=== PATIENT | male | born 1960 | race Two or more races ===

== ENCOUNTER 2024-12-20 09:37 | Outpatient (REF) | payer MEDICAID, SELFPAY ==
--- NOTE | ~2024-12-20 | XR_ITS ---
EXAMINATION: X-ray lumbar spine. CLINICAL INFORMATION: Chronic right-sided low back pain. TECHNIQUE: AP oblique and lateral views.. COMPARISON: None FINDINGS: Castellvi type III sacralization. Rudimentary ribs at T12. Multilevel endplate sclerosis and small marginal osteophyte formation. No acute cortical disruption or gross malalignment. No lytic or blastic lesions. Spina bifida occulta S1, congenital. Vascular clips right upper quadrant abdomen likely related to cholecystectomy. XR/XR lumbar spine 4V min IMPRESSION: Sacralized vertebra. Mild multilevel spondylosis without acute fracture. Electronically signed by: El Radford MD 12/20/2024 10:28 AM EDT
--- OUTSIDE RECORDS SUMMARY | 2024-12-20 10:19 | XMS_ITS | Encounter Summary ---
Author Organization [employer] [facility] Address [address] [facility] [address] [place] [address] Care Team Providers Care Change Lead Name Role Phone Unavailable Primary Care Provider Unavailabl e Encounter Details Date Type Department Care Team (Latest Contact Info) Description 08/13/2019 Abstract [facility] CONVERSIONS Dental, Provider, DDS Social History Tobacco Use Types Packs/Day Years Used Date Smoking Tobacco: Never Assessed Sex and Gender Information Value Date Recorded Sex Assigned at Male 03/29/2022 10:30 AM EDT Legal Sex Male 10:30 AM EDT Gender Identity Male 03/29/2022 10:30 AM EDT Sexual Orientation Choose not to disclose 2021 10:30 AM EDT documented as of this encounter Plan of Treatment Upcoming Encounters Date Type Department Care Team (Late st Contact Info) Description 01/18/2025 9:30 AM EDT Office Visit [facility] MEDICINE [address] [place], [place] [phone] Justine Royal DO [address] [place] [address] documented as of this encounter Visit Diagnoses Not on filedocumented in this encounter
== END 2024-12-20 09:38 | disposition home or self-care (01) ==
LOC: HO.HHCX 09:37
PROVIDERS: Visit Provider Emergency Medicine
DX: M54.41 Lumbago with sciatica, right side (principal); G89.29 Other chronic pain
CPT/HCPCS: 72110

== ENCOUNTER → 2024-12-20 09:58 | Outpatient (BNV) | payer MEDICAID, SELFPAY | PROVIDERS: Visit Provider Radiology Diagnostic Radiology | DX: M47.896 Other spondylosis, lumbar region (principal) | CPT/HCPCS: 72110 ==

== ENCOUNTER 2025-01-08 10:16 | Outpatient (AMB) | payer MEDICAID, SELFPAY ==
--- NOTE | 2025-01-08 10:23 | A.OFFVIS_ITS ---
Intake Visit Reasons: CHRONIC RT SIDED LOW BACK PAIN Supervisor Alteration Workroom Required: Yes Supervisor Alteration Workroom Language: Snap Shearer Services: Supervisor Alteration Workroom Present Supervisor Alteration Workroom Name: Josh #[id number] Information Interpreted: non-clinical & clinical Accompanied by: Spouse Allergies No Known Allergies Allergy (Verified 01/08/25 10:36) Medication List - Last Reconciled 01/08/25 by DINORAH Welsh acetaminophen (Tylenol) 650 mg PO Q6H PRN lidocaine 5% 1 patch topical DAILY tizanidine 2 mg PO Q6H PRN HPI Comments Details: The patient is a 64-year-old male presenting with chronic lower back pain with right-sided radiculopathy. The pain began approximately two years ago without any specific inciting event such as trauma or heavy lifting. The pain is more severe at night and with heavy lifting and bending, rated at 8 out of 10, and has been increasing over the past couple of weeks. 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 He manages the pain with Tylenol, tizanidine and lidocaine patches, but reports that the pain persists, especially at night. An x-ray revealed mild multilevel arthritis and small bone spur formation, with no fractures or dislocations. The patient also has congenital spina bifida occulta at S1 and sacralization of L5-S1, which could contribute to the chronic pain. - Onset: Approximately two years ago - Quality: Chronic, severe at night and with activities; aching, throbbing, stabbing, sharp, shooting, radiating - Severity: Rated 8/10 - Location: Right lower back with right-sided radiculopathy - Exacerbating factors: Sleep, changing positions, lifting heavy objects, bending forward>backwards - Relieving factors: Tylenol, tizanidine and lidocaine patches provide some relief - Affect: Pain impacts sleep, causing increased discomfort at night - Analgesia: Currently using Tylenol, tizanidine and lidocaine patches - Adverse Effects: No adverse effects from current pain management reported - Activities of Daily Living: Pain has led to being bedridden, impacting daily activities, work and sleep - Aberrant Drug Related Behaviors: None reported Oswestry Low Back Pain Disability=22 PFSH Medical History (Updated 01/08/25 @ 10:54 by DINORAH Welsh) Chronic low back pain with right-sided sciatica Spina bifida occulta Surgical History (Updated 01/08/25 @ 10:40 by Stefany Morris) Hx of cholecystectomy Social History (Updated 01/08/25 @ 10:39 by Stefany Morris) Alcohol intake: current Alcohol intake frequency: holidays/special occasions only Patient Tobacco Use Status: Never used Tobacco Review of Systems Const Details: - Musculoskeletal: Reports chronic lower back pain with right-sided radiculopathy - Neurological: Denies numbness or tingling, bladder or bowel dysfunction, or saddle anesthesia - General: Denies fever, chills, unintentional weight loss, or night sweats All systems reviewed & are unremarkable except as noted in HPI and below Physical Exam General: Appears afebrile. Alert and oriented. Mood and affect appropriate. Follows and participates in conversation appropriately. Respiratory effort is unlabored. No cough. Able to transition from sit to stand unassisted. Ambulates with bilaterally normal heel strike and toe off. General: Yes no CVA tenderness Back/Spine/Pelvis Other: Limited lumbar ROM due to pain. Lumbar extension and flexion forward reproduces moderate pain. Demonstrates 5/5 strength of quadriceps bilaterally as well as flexion/dorsiflexion of bilateral feet against resistance. 2+ pedal pulses bilaterally. Seated and supine straight leg rise with dorsiflexion negative bilaterally. +2 patellar and achilles reflexes bilaterally. Facet loading test positive bilaterally. Indy sign, Carlos?s, Gaenslen, Pelvic compression and Stinchfield tests are positive bilaterally, right>left. No groin pain with I/E hip rotations. Valsalva maneuver negative. Back: no CVA tenderness Cervical Spine: cervical ROM normal, cervical muscular tenderness and No Cervical spine tenderness Thoracic/Lumbar Spine: thoracic and lumbar spine normal to inspection, No Thoracic/lumbar spine scar(s), Lasegue's sign negative, straight leg raise negative bilaterally, pain with thoraco-lumbar ROM, paraspinal muscle tenderness, thoraco-lumbar ROM limited, No thoracic spinal tenderness and lumbar spinal tenderness (L4-S1) Pelvis: buttock tenderness on the right Sacroiliac joints: bilaterally (R>L) tender to palpation Extrem General: Yes capillary refill normal, Yes no clubbing, cyanosis or edema and Yes no calf tenderness Results Reviewed Results Reviewed: XR lumbar spine 4V min 12/20/24 CLINICAL INFORMATION: Chronic right-sided low back pain. TECHNIQUE: AP oblique and lateral views.. COMPARISON: None FINDINGS: Castellvi type III sacralization. Rudimentary ribs at T12. Multilevel endplate sclerosis and small marginal osteophyte formation. No acute cortical disruption or gross malalignment. No lytic or blastic lesions. Spina bifida occulta S1, congenital. Vascular clips right upper quadrant abdomen likely related to cholecystectomy. IMPRESSION: Sacralized vertebra. Mild multilevel spondylosis without acute fracture. Assessment & Plan Assessment & Plan (1) Chronic low back pain with right-sided sciatica: Code(s): M54.41 - Lumbago with sciatica, right side; G89.29 - Other chronic pain Category: Medical (2) Lumbar spondylosis: Code(s): M47.816 - Spondylosis without myelopathy or radiculopathy, lumbar region Category: Medical (3) Sacralization of lumbar vertebra: Code(s): Q76.49 - Other congenital malformations of spine, not associated with scoliosis Category: Medical (4) Lumbar degenerative disc disease: Code(s): M51.369 - Other intervertebral disc degeneration, lumbar region without mention of lumbar back pain or lower extremity pain Category: Medical (5) Chronic low back pain with right-sided sciatica: Code(s): M54.41 - Lumbago with sciatica, right side; G89.29 - Other chronic pain Category: Medical (6) Sacroiliac joint pain: Code(s): M53.3 - Sacrococcygeal disorders, not elsewhere classified Category: Medical Plan - Initiate physical therapy at [facility] in [place] close to his home proximity to address chronic lower back pain - If no improvement with physical therapy, consider MRI to further evaluate the condition - Continue current pain management with Tylenol and lidocaine patches - Consider interventional procedures such as diagnostic vs therapeutic injections, Sprint PNS trail or radiofrequency ablation if physical therapy is ineffective. All questions and concerns have been answered and patient agreed with the plan. Follow up after PT and sooner as needed. Patient was informed and verbally consented to the use of an ambient scribe for clinic note documentation during this visit. Orders: Orders PT Evaluation and Treatment Today G89.29 - Other chronic pain, M47.816 - Spondylosis without myelopathy or radiculopathy, lumbar region, M51.369 - Other intervertebral disc degeneration, lumbar region without mention of lumbar back pain or lower extremity pain, M53.3 - Sacrococcygeal disorders, not elsewhere classified, M54.41 - Lumbago with sciatica, right side, Q76.0 - Spina bifida occulta, Q76.49 - Other congenital malformations of spine, not associated with scoliosis Coding Level of Care Code New Pt Level 4 (42819) Diagnoses Chronic low back pain with right-sided sciatica M54.41; G89.29 Lumbar spondylosis M47.816 Sacralization of lumbar vertebra Q76.49 Lumbar degenerative disc disease M51.369 Sacroiliac joint pain M53.3
--- OUTSIDE RECORDS SUMMARY | 2025-01-08 11:17 | XMS_ITS | Encounter Summary ---
Author Organization [employer] [facility] Address [address] [facility] [address] [place] [address] Care Team Providers Care Manager Msw Name Role Phone Unavailable Primary Care Provider Unavailabl e Encounter Details Date Type Department Care Team (Latest Contact Info) Description 08/13/2019 Abstract [facility] CONVERSIONS Dental, Provider, DDS Social History [...] Description 01/18/2025 9:30 AM EDT Office Visit [facility] MEDICINE [address] [place], [place] [phone] Justine Royal DO [address] [place] [address] documented as of this encounter Visit Diagnoses Not on filedocumented in this encounter
== END 2025-01-08 11:05 | disposition home or self-care (01) ==
LOC: HO.PMC 10:16
PROVIDERS: Visit Provider Nurse Practitioner Family
DX: M54.41 Lumbago with sciatica, right side (principal); G89.29 Other chronic pain; M47.816 Spondylosis without myelopathy or radiculopathy, lumbar region; Q76.49 Other congenital malformations of spine, not associated with scoliosis; M51.369 Other intervertebral disc degeneration, lumbar region without mention of lumbar back pain or lower extremity pain; M53.3 Sacrococcygeal disorders, not elsewhere classified
CPT/HCPCS: 99204

== ENCOUNTER → 2025-01-08 10:16 | Outpatient (BNVA) | payer MEDICAID, SELFPAY | PROVIDERS: Visit Provider Nurse Practitioner Family | DX: M54.41 Lumbago with sciatica, right side (principal); M47.816 Spondylosis without myelopathy or radiculopathy, lumbar region; Q76.49 Other congenital malformations of spine, not associated with scoliosis; M51.369 Other intervertebral disc degeneration, lumbar region without mention of lumbar back pain or lower extremity pain; M53.3 Sacrococcygeal disorders, not elsewhere classified | CPT/HCPCS: 99212 ==

== ENCOUNTER 2025-01-18 10:09 | Outpatient (REF) | payer MEDICAID, SELFPAY ==
--- OUTSIDE RECORDS SUMMARY | 2025-01-18 10:15 | XMS_ITS | Encounter Summary ---
Author Organization [facility] [employer] [facility] Address [address] [facility] 7t [place] [address] Care Team Providers Care 1St Pressman Name Role Phone Unavailable Primary Care Provider Unavailabl e Encounter Details Date Type Department Care Team (Latest Contact Info) Description 12/04/2018 Abstract [facility] CONVERSIONS Dental, Provider, DDS Social History Tobacco [...] Care Team (Late st Contact Info) Description 02/11/2025 10:30 AM EDT Clinical Support [facility] MEDICINE [address] [place] [phone] documented as of this encounter Visit Diagnoses Not on filedocumented in this encounter
[2025-01-18 12:04] LABS: Hematocrit 47.5 % (42.0-52.0); Hemoglobin 16.2 g/dl (14.0-18.0); Mean Corpuscular HGB Conc 34.1 g/dl (31.0-36.0); Mean Corpuscular Hemoglobin 30.9 pg (27.0-33.0); Mean Corpuscular Volume 90.6 fL (80.0-98.0); NRBC Abs Auto 0.000 X10*3/uL (0.0-0.012); NRBC Pct Auto 0.0 /100WBC (0.0-0.2); Platelet Count 232 X10*3/uL (160-400); Red Blood Count 5.24 X10*6/uL (4.60-5.80); White Blood Count 5.9 X10*3/uL (4.8-10.8)
[2025-01-18 12:22] LABS: Hemoglobin A1C 142.5326 umol/L; Total Hemoglobin (HGBA1C) 4212.9134 umol/L
[2025-01-18 12:41] LABS: Microalbum/Creatinine Ratio Ur 5.6 ug/mg cr (<30)
[2025-01-18 13:27] LABS: Alanine Aminotransferase 40 U/L (0-40); Albumin Level 4.9 g/dL (3.5-5.0); Alkaline Phosphatase 72 U/L (39-117); Anion Gap 13 (12-20); Aspartate Amino Transferase 28 U/L (5-37); Blood Urea Nitrogen 10 mg/dL (9-16); Calcium 9.2 mg/dL (8.4-10.2); Carbon Dioxide 28 mmol/L (22-29); Chloride 105 mmol/L (96-108); Cholesterol 282 mg/dL (<200); Estimated Glomerular Filt Rate > 60; HDL Cholesterol 44 mg/dL (>40); Potassium 3.9 mmol/L (3.3-5.1); Sodium 142 mmol/L (135-145); Total Protein 8.4 g/dL (6.5-8.0); Triglycerides 106 mg/dL (<150)
[2025-01-18 13:53] LABS: Free T4 (Free Thyroxine) 1.05 ng/dL (0.71-1.85); Thyroid Stimulating Hormone 2.10 uIU/mL (0.32-4.0)
[2025-01-19 08:52] LABS: HBS Num1 8.02 mIU/mL (0-7.99); HBc Num1 0.14 S/CO (0.00-0.79); HBsAGNum1 0.38 S/CO (0.00-0.99); Hepatitis B Surface Antigen Negative (Negative)
[2025-01-19 09:05] LABS: HIV Num 1 0.08 S/CO (0.00-0.99); ~HepC Num1 0.21 S/CO (0.00-0.79); ~Hepatitis C Antibody Nonreactive (Nonreactive)
[2025-01-19 13:10] LABS: HBS Num2 7.98 mIU/mL (0-7.99); HBS Num3 8.78 mIU/mL (0-7.99); ~Hepatitis B Surface Antibody GRAYZONE (Nonreactive)
[2025-01-21 09:03] LABS: ~Hepatitis A Antibody IgG 10.26 S/CO (0.00-0.99)
[2025-01-21 16:38] LABS: TS Negative Control Passed; TS Panel A 1; TS Panel B 0; TS Positive Control Passed; TSpotTB Negative (Negative)
== END 2025-01-18 10:10 | disposition home or self-care (01) ==
LOC: HO.HHCL 10:09
PROVIDERS: PCP Family Medicine; Visit Provider Family Medicine
DX: Z00.00 Encounter for general adult medical examination without abnormal findings (principal); I10 Essential (primary) hypertension; M54.41 Lumbago with sciatica, right side; G89.29 Other chronic pain; Z68.28 Body mass index [BMI] 28.0-28.9, adult; Z71.3 Dietary counseling and surveillance; Z71.82 Exercise counseling; Z11.4 Encounter for screening for human immunodeficiency virus [HIV]; Z11.59 Encounter for screening for other viral diseases; Z11.1 Encounter for screening for respiratory tuberculosis
CPT/HCPCS: 36415; 80048; 80061; 80076; 82043; 82306; 82570; 83036; 84439; 84443; 85027; 86481; 86592; 86704; 86706; 86708; 86803; 87340; 87389

== ENCOUNTER 2025-05-28 11:26 | Emergency (ER) | payer MEDICAID, SELFPAY ==
--- OUTSIDE RECORDS SUMMARY | 2024-12-19 09:40 | XMS_ITS | Encounter Summary ---
Author Organization [employer] Address [address] [facility] 7t [place] [address] Care Team Providers Care Roll Hand Name Role Phone Jeanne Royalfer Primary Care Provider + [phone] Reason for Referral * Consultation (Routine) - Closed Specialty Diagnoses / Procedures Referred By Contac t Referred To Contact Pain Medicine Diagnoses Chronic right-sided low back pain with right-sided sciatica Alberto Retana MD [address] [place] [id number] Phone: tel: fax: [facility], [address] [place], [place] Phone: tel: fax: Referral ID Status Reason Start Date Expiration Date V isits Requested Visits Authorized [id number] Closed Specialty Services Required 12/19/2024 12/19/2025 6 6 Reason for Visit * Reason Comments Leg Pain Pain starts at the h ip and radiates down the leg to the calf Encounter Details Date Type Department Care Team (Late st Contact Info) Description 12/19/2024 10:40 AM EDT Office Visit [facility] [address] [place] [phone] Alberto Retana MD [address] [place] [address] [phone] Chronic right-sided low back pain with right-sided sciatica (Primary Dx); Elevated blood pressure reading in office without diagnosis of hypertension Social History Tobacco Use Types Packs/Day Years Used Date Smoking Tobacco: Never Passive Smoke Exposure: Never Smokeless Tobacco: Never Depression Answer Date Recorded Patient Health Questionnaire-9 Score 3 01/18/2025 Patient Health Questionnaire-9 Score 3 01/18/2025 Last PHQ-9: Questionnaire Data Not on file 0 01/18/2025 Housing Stability Answer Date Recorded What is your housing situation today? I have alberto molina 01/11/[address] you li ve. Do you have problems with any of the following? None of the above 01/11/2025 Food Insecurity Answer Date Recorded Within the past 12 months, y ou worried that your food would run out before you got money to buy more: Never True 01/11/2025 Within the past 12 months,th e food you bought just didn't last and you didn't have enough money to get more: Never True Transportation Answer Date Recorded In the past 12 months, has l ack of transportation kept you from medical appts, meetings, work or from getting things needed for daily living? No 01/11/2025 Utilities Answer Date Recorded In the past 12 months, has t he electric, gas, oil or water company threatened to shut off services in your home? No 01/11/2025 Depression Answer Date Recorded Patient Health Questionnaire-2 Score 2 01/18/2025 Internet Access Answer Date Recorded Internet Access Q1 Yes 01/11/2025 Internet Access Q2 Not on file 01/11/2025 Sex and Gender Information Value Date Recorded Sex Assigned at Male 03/29/2022 10:30 AM EDT Legal Sex Male 10:30 AM EDT Gender Identity Male 03/29/2022 10:30 AM EDT Sexual Orientation Choose not to disclose 2021 10:30 AM EDT documented as of this encounter Last Filed Vital Signs Vital Sign Reading Time Taken Comments Blood Pressure 158/93 12/19/2024 10:40 AM EDT Pulse 75 12/19/2024 10:40 AM EDT Temperature 36.5 C (97.7 F) 12/19/2024 10:40 AM EDT Respiratory Rate 17 12/19/2024 10:40 AM EDT Oxygen Saturation 98% 12/19/2024 10:40 AM EDT Inhaled Oxygen Concentration - - Weight 75.1 kg (165 lb 9.6 oz) 12/19/2024 10:40 AM EDT Height - - Body Mass Index - - documented in this encounter Progress Notes * Alberto Retana MD - 12/19/2024 10:40 AM EDT Subjective Patient ID: Vanessa Moore is a 64 y.o. male, new patient. Last saw PCP 10 years. Cord Cutter: Alexander. HPI Vanessa came to [facility] as new pt because of many year h/o right low back pain with radiation to RLE that comes and goes, recurred yesterday after being pain-free for 2-3 weeks. Pain is worse in bed at night, when carrying heavy items. Has never been evaluated for this pain before. Taking Tylenol and 's muscle relaxer with some relief. Denies fever, chills, abd. pain, urinary sx, bowel or bladder dysfunction, saddle anesthesia, extremity weakness or numbness. Past medical history: Chronic right LBL with right LE radiculopathy. Past surgical history: cholecystectomy. Lives with , daughter. Has 2 more daughters who live on their own. Works in grocery store. Never smoked. Occasional EtOH No Illicit substances The following portions of the chart were reviewed this encounter and updated as appropriate: Tobacco Allergies Meds Problems Med Hx Surg Hx Fam Hx Review of Systems Constitutional: Negative for fever. Respiratory: Negative for shortness of breath. Cardiovascular: Negative for chest pain. Gastrointestinal: Negative for abdominal pain. Musculoskeletal: Positive for back pain. Skin: Negative for rash. Neurological: Negative for headaches. Objective Physical Exam Constitutional: Appearance: Normal appearance. HENT: Right Ear: Tympanic membrane, ear canal and external ear normal. Left Ear: Tympanic membrane, ear canal and external ear normal. Nose: Nose normal. Mouth/Throat: Mouth: Mucous membranes are moist. Pharynx: Oropharynx is clear. Eyes: Conjunctiva/sclera: Conjunctivae normal. Pupils: Pupils are equal, round, and reactive to light. Comments: left pterygium Cardiovascular: Rate and Rhythm: Normal rate and regular rhythm. Pulses: Dorsalis pedis pulses are 2+ on the right side. Heart sounds: No murmur heard. Pulmonary: Effort: Pulmonary effort is normal. Breath sounds: Normal breath sounds. Musculoskeletal: General: Normal range of motion. Cervical back: No tenderness. Skin: Findings: No rash. Neurological: Mental Status: He is alert. Gait: Gait is intact. Comments: Normal dorsi and plantarflexion of right foot and great toe against resistance Psychiatric: Mood and Affect: Mood normal. Behavior: Behavior normal. Procedures Assessment/Plan Diagnoses and all orders for this visit: Chronic right-sided low back pain with right-sided sciatica Prescribed acetaminophen, lidocaine patches, and tizanidine. Lumbar spine x-rays ordered, he will have them done tomorrow. Will call pt with report. Referred to pain management. - XR Lumbar Spine 2-3 Views; Future Elevated blood pressure reading in office without diagnosis of hypertension Prescribed home BP monitor. Reviewed BP parameters, given written BP log that includes BP parameters, to keep daily. MECHANICAL UNIT REPAIRER PCP appointment scheduled. Patient will bring BP log to appointment. Other orders - Blood Pressure kit; 1 each 2 times daily. - lidocaine (Lidoderm) 5 % patch; Apply 1 patch topically Once per day. Remove & discard patch within 12 hours or as directed by MD. - tiZANidine (Zanaflex) 2 MG tablet; Take 1 tablet (2 mg) by mouth every 6 (six) hours if needed for muscle spasms. - acetaminophen (Tylenol) 500 MG tablet; Take 2 tablets (1,000 mg) by mouth every 6 (six) hours if needed for moderate pain or fever for up to 25 doses. documented in this encounter Plan of Treatment Upcoming Encounters Date Type Department Care Team (Late st Contact Info) Description 06/11/2025 11:00 AM EST Office Visit [facility] ADULT DENTAL [address] [place] [address] Hitesh Sutton [address] [place] [address] 07/29/2025 9:30 AM EST Office Visit [facility] OPTOMETRY [address] [place] [address] Anneliese Tracy, OD [address] [place] [address] 08/16/2025 9:30 AM EDT Office Visit [facility] ADULT DENTAL [address] [place] [address] Jamshid Lamas Scheduled Referrals Name Type Priority Associated Diagnoses Orde r Schedule Referral to Pain Medicine Outpatient Referral Routine Chronic right-sided low back pain with right-sided sciatica Expected: 12/19/2024 (Approximate), Expires: 12/19/2025 documented as of this encounter Procedures Procedure Name Priority Date/Time Associated Diagnosis Comments XR LUMBAR SPINE COMPLETE 4+ VIEWS Routine 12/20/2024 9:24 AM EDT documented in this encounter Results * XR Lumbar Spine Complete 4+ Views (12/20/2024 9:24 AM EDT) Anatomical Region Laterality Modality Spine, L-spine Radiographic Tabitha ging 12/20/2024 9:24 AM EDT Narrative 12/20/2024 10:31 AM EDT [facility] [address] [place] [address] XRay Report Signed Patient: Vanessa Linares MR#: [id number] : 1960 Acct:[id number] Age/Sex: 64 / M ADM Date: 12/20/24 [facility] Att[facility] Dr: Alberto Retana MD Ordering Physician: ALBERTO RETANA MD Date of Service: 12/20/24 Procedure(s): XR lumbar spine 4V min Accession Number(s): [id number] cc: ALBERTO RETANA MD; [facility] EXAMINATION: X-ray lumbar spine. CLINICAL INFORMATION: Chronic right-sided low back pain. TECHNIQUE: AP oblique and lateral views.. COMPARISON: None FINDINGS: Castellvi type III sacralization. Rudimentary ribs at T12. Multilevel endplate sclerosis and small marginal osteophyte formation. No acute cortical disruption or gross malalignment. No lytic or blastic lesions. Spina bifida occulta S1, congenital. Vascular clips right upper quadrant abdomen likely related to cholecystectomy. XR/XR lumbar spine 4V min IMPRESSION: Sacralized vertebra. Mild multilevel spondylosis without acute fracture. Electronically signed by: El Radford MD 12/20/2024 10:28 AM EDT RP Dictated By: El Dia MD Signed By: <Electronically signed by El Smith MD in OV> 12/20/24 1028 DD/ 0924 TD/TT: 12/20/24 1000 Railway Signalling Engineer: Procedure Note Donotuseinterpreter, Image - 12/20/2024 [facility] [address] [place] [address] XRay Report Signed Patient: Vanessa Linares EMR#: [id number] : 1960Acct:[id number] Age/Sex: 64 / MADM Date: 12/20/24 Loc: .[facility] Attending Dr: Alberto Retana MD Ordering Physician: ALBERTO RETANA MD Date of Service: 12/20/24 Procedure(s): XR lumbar spine 4V min Accession Number(s): [id number] cc: ALBERTO RETANA MD; [facility] EXAMINATION: X-ray lumbar spine. CLINICAL INFORMATION: Chronic right-sided low back pain. TECHNIQUE: AP oblique and lateral views.. COMPARISON: None FINDINGS: Castellvi type III sacralization. Rudimentary ribs at T12. Multilevel endplate sclerosis and small marginal osteophyte formation. No acute cortical disruption or gross malalignment. No lytic or blastic lesions. Spina bifida occulta S1, congenital. Vascular clips right upper quadrant abdomen likely related to cholecystectomy. XR/XR lumbar spine 4V min IMPRESSION: Sacralized vertebra. Mild multilevel spondylosis without acute fracture. Electronically signed by: El Radford MD 12/20/2024 10:28 AM EDT RP Dictated By: El Dia MD Signed By: <Electronically signed by El Smith MDin OV> 12/20/24 1028 DD/ 0924 TD/TT: 12/20/24 1000 Railway Signalling Engineer: Alberto Retana MD IMG XR PROCEDURES Edited Result - Final documented in this encounter Visit Diagnoses Diagnosis Chronic right-sided low back pain with right-sided sciatica- Primary Elevated blood pressure reading in office without diagnosis of hypertension documented in this encounter Care Teams Roll Hand Relationship Specialty Start Date End Date Justine Royal DO [address] [place] [address] PCP - General Family Medicine 01/22/25 documented as of this encounter
--- NOTE | ~2025-05-28 | XR_ITS ---
EXAMINATION: XR CHEST CLINICAL INFORMATION: Presyncope COMPARISON: None available. TECHNIQUE: 2 views of the chest were obtained. FINDINGS: Linear scarring or subsegmental atelectasis at the left lung base. The lungs are otherwise clear. No consolidation or pulmonary edema. No pleural effusion or pneumothorax. Cardiac and mediastinal contours are normal. Mild curvature of the lower thoracic spine to the right and degenerative change. XR/XR chest 2V IMPRESSION: No evidence for acute disease in the chest. Electronically signed by: Racheal Fleming MD 05/28/2025 01:18 PM SHON
--- OUTSIDE RECORDS SUMMARY | 2025-05-28 09:00 | XMS_ITS | Encounter Summary ---
Author Organization [employer] Address [address] [place] [address] Care Team Providers Care Explosives Engineer Name Role Phone GennyJustine Primary Care Provider + [phone] Reason for Visit * Reason Comments Fatigue Encounter Details Date Type Department Care Team (Late st Contact Info) Description 05/28/2025 9:00 AM EST Office Visit [facility] [address] [place], [place] [id number] Alberto Peterson MD [address] [place] [address] Near syncope (Primary Dx); Essential hypertension Social History Tobacco Use Types Packs/Day Years Used Date Smoking Tobacco: Never Passive Smoke Exposure: Never Smokeless Tobacco: Never Tobacco Cessation:Counseling Given: Not Answered Alcohol Use Standard Drinks/Week Comments Never 0 (1 standard drink = 0.6 oz pur e alcohol) Depression Answer Date Recorded Patient Health Questionnaire-9 [...] Sign Reading Time Taken Comments Blood Pressure 140/93 05/28/2025 8:49 AM EST Pulse 81 05/28/2025 8:49 AM EST Temperature 36.8 C (98.3 F) 05/28/2025 8:49 AM EST Respiratory Rate 18 05/28/2025 8:49 AM EST Oxygen Saturation 99% 05/28/2025 8:49 AM EST Inhaled Oxygen Concentration - - Weight 76.2 kg (168 lb) 05/28/2025 8:49 AM EST Height - - Body Mass Index 28.84 01/18/2025 9:21 AM EDT documented in this encounter Progress Notes * Alberto Peterson MD - 05/28/2025 9:00 AM ESTAssociated Order(s): ECG 12 lead Pre-Procedure Diagnose(s): Near syncope Post-Procedure Diagnose(s): Near syncope Subjective Patient ID: Vanessa Moore is a 64 y.o. male. Cellar Hand: Ulisses COTO Vanessa came to [facility] today because he would like his BP med changed because 3 days ago after shoveling snow for 40 minutes, he felt dizzy, described as feeling hot and cold, diaphoretic, lightheaded, feeling like he was going to pass out. He went inside, rested, symptoms lasted 10 minutes before resolving. Had no n/v, SOB, headache, or chest discomfort. Feels tired, otherwise well. Father has h/o heart disease . States that 8 months ago he had an episode of syncope that lasted for about 1 minute. Lives with , daughter. Has 2 more daughters who live on their own. Not employed. Never smoked. Occasional EtOH No Illicit substances Patient Active Problem List Diagnosis Date Noted Essential hypertension 01/22/2025 Lumbar spondylosis 01/09/2025 Spina bifida occulta 01/09/2025 Chronic right-sided low back pain with right-sided sciatica 12/19/2024 Past surgical history: cholecystectomy. The following portions of the chart were reviewed this encounter and updated as appropriate: Review of Systems Constitutional: Positive for chills and diaphoresis. Negative for fever. Respiratory: Negative for shortness of breath. Cardiovascular: Negative for chest pain. Gastrointestinal: Negative for abdominal pain. Skin: Negative for rash. Neurological: Positive for dizziness. Negative for headaches. Objective Physical Exam Constitutional: Appearance: Normal appearance. HENT: Right Ear: Tympanic membrane, ear canal and external ear normal. Left Ear: Tympanic membrane, ear canal and external ear normal. Nose: Nose normal. Mouth/Throat: Mouth: Mucous membranes are moist. Pharynx: Oropharynx is clear. Eyes: Pupils: Pupils are equal, round, and reactive to light. Comments: Left pterygium Cardiovascular: Rate and Rhythm: Normal rate and regular rhythm. Heart sounds: No murmur heard. Pulmonary: Effort: Pulmonary effort is normal. Breath sounds: Normal breath sounds. Musculoskeletal: General: Normal range of motion. Cervical back: No tenderness. Skin: Findings: No rash. Neurological: Mental Status: He is alert. Gait: Gait is intact. Psychiatric: Mood and Affect: Mood normal. Behavior: Behavior normal. ECG 12 lead Date/Time: 05/28/2025 9:45 AM Performed by: Alberto Peterson MD Authorized by: Alberto Peterson MD Previous ECG: Previous ECG: Unavailable Interpretation: Interpretation: abnormal Details: PVC, ALMITA Rate: ECG rate: 78 ECG rate assessment: normal Rhythm: Rhythm: sinus rhythm Ectopy: Ectopy: PVCs PVCs: Infrequent QRS: QRS axis: Normal QRS intervals: Normal QRS conduction: normal ST segments: ST segments: Normal T waves: T waves: normal Q waves: Abnormal Q-waves: not present Other findings: Other findings: LAE Assessment/Plan Diagnoses and all orders for this visit: Near syncope Occurred after exertion. ? New onset angina equivalent. EKG: ALMITA, PVC. No old EKGs available for comparison. Due to history of near syncope and diaphoresis after shoveling snow, PVC on EKG, patient was referred to the ED for further evaluation. - ECG 12 lead Essential hypertension BP will be rechecked in the ED. documented in this encounter Plan of Treatment Upcoming Encounters Date Type Department Care Team (Late st Contact Info) Description 06/11/2025 11:00 AM EST Office Visit [facility] [address] [facility] [place] [address] Herman Hitesh [address] [place] [address] 07/29/2025 9:30 AM EST Office Visit [facility] [address] [place], [place] [phone] Tarka, Anneliese, OD [address] [place] [address] 08/16/2025 9:30 AM EDT Office Visit [facility] [address] [facility] [place], [place] [id number] Jamshid Lamas Pending Results Name Type Priority Associated Diagnoses Date /Time ECG 12 lead ECG Routine Near syncope 05/28/2025 1:56 PM EST documented as of this encounter Procedures Procedure Name Priority Date/Time Associated Diagnosis Comments ECG 12-LEAD Routine 05/28/2025 1:56 PM EST Near syncope documented in this encounter Visit Diagnoses Diagnosis Near syncope- Primary Essential hypertension Unspecified essential hypertension documented in this encounter Additional Health Concerns Assessment Noted Time PHQ-9 Depression Total Score: 3 01/19/20 25 12:23 PM EDT documented as of this encounter Care Teams Explosives Engineer Relationship Specialty Start Date End Date Justine Royal DO [address] [place] [address] PCP - General Family Medicine 01/22/25 documented as of this encounter
[2025-05-28 12:24] VITALS: BP 149/75; PULSE 94; RESP 16; TEMP 36.3; O2SAT 98; BMI 28.3
--- NOTE | 2025-05-28 12:28 | ED.CHESTPAIN ---
HPI - Chest Pain General Chief Complaint: Syncope Stated Complaint: syncopal episode earlier Time Seen by Provider: 05/28/25 15:56 History of Present Illness ED Provider: Della COTO narrative: The patient is a 64-year-old male who says that he had an episode 3 days ago on Tuesday that occurred after he has been using a swimming coach. The patient has been outside working with a swimming coach for about 40 minutes. While he was outside he felt very cold. He felt that he could not feel his hands or his feet. He went into the basement of his house which was not heated. There he felt lightheaded as if you might pass out and he also felt sweaty. Ultimately he went upstairs to where it was warmer and then he felt better after about 10 minutes. He then laid down and slept for a few hours. He had no symptoms during the rest of the day or the next day on Tuesday or the day after that, yesterday, Tuesday. Today he went to the [facility] to discuss this episode. He was seen at the urgent care walk-in center. At the walk-in center he was advised to come to the emergency room for evaluation here. The patient currently has no chest pain, no shortness of breath, no headache. The patient says that he has not had any unusual symptoms since 3 days ago on Tuesday Related Data Home Medications ?Medication ?Instructions ?Recorded ?Confirmed acetaminophen 325 mg tablet 650 mg PO Q6H PRN 01/08/25 01/08/25 (Tylenol) lidocaine 5 % topical patch 1 patch topical DAILY 01/08/25 01/08/25 tizanidine 2 mg tablet 2 mg PO Q6H PRN muscle spasms 01/08/25 01/08/25 Allergies Allergy/AdvReac Type Severity Reaction Status Date / Time No Known Allergies Allergy Verified 05/28/25 12:31 Review of Systems Review of Systems: Yes all other systems are reviewed and are negative PMFSH Past Medical History Medical History (Updated 05/28/25 @ 16:30 by Enoch Hull MD) Chronic low back pain with right-sided sciatica Spina bifida occulta Surgical History (Updated 01/08/25 @ 10:40 by Stefany [facility]) Hx of cholecystectomy Social History Social History (Updated 01/08/25 @ 10:39 by Tsefany [facility]) Alcohol intake: current Alcohol intake frequency: holidays/special occasions only Patient Tobacco Use Status: Never used Tobacco Advance Directives: No Advance Directives Information Provided: No Physical Exam Vital Signs: Vital Signs: Last Vital Signs Temp 97.5 F 05/28/25 16:19 Pulse 78 05/28/25 16:22 Resp 14 05/28/25 16:19 BP 142/87 H 05/28/25 16:22 Pulse Ox 99 05/28/25 16:19 O2 Del Method Room Air 05/28/25 16:19 BMI result Body Mass Index 28.3 Const: Other: The patient is awake, alert, pleasant, cooperative. He has not appear ill at all. Orientation/consciousness: patient oriented x3 HEENT: Other: The face is symmetrical. ?Mucous membranes moist. Eyes: Other: Pupils are round equal, conjunctivae are clear, extraocular movements intact Neck: Neck: Yes normal visual inspection, Yes full ROM and Yes no JVD Resp: Effort & Inspection: normal respiratory effort Auscultation: clear to auscultation bilaterally Cardio: Rate: regular rate Rhythm: regular rhythm Heart sounds: S1 normal heart sound present and S2 normal heart sound present GI: Other: The abdomen is soft and nontender. No masses. Skin: Other: The skin is dry and unremarkable Neuro: General: patient oriented x3, tone normal and no focal motor deficits Extrem: Other: There is no calf swelling or tenderness. No asymmetry. No peripheral edema. Course Course Course Narrative: This is a Rapid Medical Exam performed in triage by Sherron Charles PA-C. Full HPI, ROS and PE to be performed by primary ED provider. 64-year-old Japanese-speaking male presenting to the ED sent in from urgent care c/o dizziness, diaphoresis, chills, pre-syncope s/p shoveling snow 3 days ago. denies CP/SOB PE: NAD, nontoxic appearing, ambulating with steady gait Plan: EKG, labs, CXR Medical Decision Making Medical Decision Making MDM Narrative: The patient is a 64-year-old male who had an episode of lightheadedness approaching near-syncope associated with some sweats after he has been using a swimming coach outside in the cold weather for about 40 minutes. He said that he has been feeling very cold before his symptoms began. This episode occurred 3 days ago. He has had no recurrence of any events since then. He went to the walk-in clinic at his PCP office today and was referred to the emergency room. He has a an unremarkable EKG today and an undetectable troponin. His physical exam is normal, vital signs unremarkable. The episode he experienced 3 days ago is fairly nonspecific. There was no associated chest pain, no associated shortness of breath, no associated headache. The episode occurred in the setting of prolonged cold exposure. The patient is not a diabetic. He is on medication for hypertension. No history of cardiac or vascular disease. I think that the episode 3 days ago was probably more likely related to environmental exposure than an acute coronary syndrome or any equivalent. Since the patient has been stable for 3 days I think it is reasonable for him to be discharged today to follow up with his PCP and with the cardiology as an outpatient. Return if worse. Lab Data 05/28/25 12:51 05/28/25 12:51 Labs: Lab Results 05/28/25 Range/Units 12:51 WBC 5.5 (4.8-10.8) X10*3/uL RBC 4.86 (4.60-5.80) X10*6/uL Hgb 15.1 (14.0-18.0) g/dl Hct 43.9 (42.0-52.0) % MCV 90.3 (80.0-98.0) fL MCH 31.1 (27.0-33.0) pg MCHC 34.4 (31.0-36.0) g/dl RDW 13.2 (11.0-16.0) % Plt Count 219 (160-400) X10*3/uL MPV 10.2 (9.4-12.4) fL Immature Gran % (Auto) 0.4 (0.0-0.4) % Neut % (Auto) 57.2 (45-73) % Lymph % (Auto) 33.5 (20-40) % Trimble % (Auto) 7.7 (2-11) % Eos % (Auto) 0.7 (0-4) % Baso % (Auto) 0.5 (0-2) % Lymph # (Auto) 1.8 (1.2-4.9) X10*3/uL Trimble # (Auto) 0.4 (0.1-1.2) X10*3/uL Eos # (Auto) 0.0 (0.0-0.4) X10*3/uL Baso # (Auto) 0.0 (0.0-0.2) X10*3/uL Abs Immat Gran (auto) 0.02 (0.00-0.03) X10*3/uL Absolute Neuts (auto) 3.1 (2.0-8.3) x10*3/uL Absolute Nucleated RBC 0.000 (0.0-0.012) X10*3/uL Nucleated RBC % (auto) 0.0 (0.0-0.2) /100WBC Sodium 140 (135-145) mmol/L Potassium 3.9 (3.3-5.1) mmol/L Chloride 108 (96-108) mmol/L Carbon Dioxide 26 (22-29) mmol/L Anion Gap 10 L (12-20) BUN 13 (9-16) mg/dL Creatinine 0.80 (0.5-1.4) mg/dL Estim Creat Clear Calc 88.6 Estimated GFR > 60 Random Glucose 102 (60-115) mg/dL Calcium 9.6 (8.4-10.2) mg/dL Magnesium 2.2 (1.6-2.6) mg/dL Total Bilirubin 0.5 (0.0-1.0) mg/dL Direct Bilirubin 0.2 (0.0-0.5) mg/dL AST 23 (5-37) U/L ALT 30 (0-40) U/L Alkaline Phosphatase 65 (39-117) U/L Troponin I High Sens < 2.7 (<3.5-35.0) ng/L Total Protein 7.7 (6.5-8.0) g/dL Albumin 4.5 (3.5-5.0) g/dL Influenza Type A (PCR) NEGATIVE (Negative) Influenza Type B (PCR) NEGATIVE (Negative) RSV RNA Qual (PCR) NEGATIVE (Negative) SARS-CoV-2 RNA (RT-PCR) NEGATIVE (Negative) Independent Interpretation I performed an independent interpretation of an: EKG Interpretation: EKG at 1242 shows sinus rhythm with the occasional PVCs at 85 beats per minute. No acute ischemic changes. No old EKGs available for comparison. Discharge Plan Discharge Clinical Impression: Near syncope Patient Disposition: Home, Self-Care Instructions: Syncope (ED) Additional Instructions: Your testing in the emergency room today is very reassuring. Nevertheless your episode on Tuesday probably requires additional evaluation as an outpatient. I think you should probably make an appointment with the cardiology office. You has been given the contact information for the [facility]. Please call them tomorrow morning to make a follow up appointment to discuss your episode of almost fainting. Also follow up with your regular doctor to discuss your blood pressure regimen. Return to the emergency room if significantly worse. Prescriptions: No Action acetaminophen [Tylenol] 325 mg tablet 650 mg PO Q6H PRN tizanidine 2 mg tablet 2 mg PO Q6H PRN (Reason: muscle spasms) lidocaine 5 % adhesive patch,medicated 1 patch topical DAILY Rx Instructions: leave on most painful area for up to 12 hrs Referrals: [facility] [Provider Group] Justine Royal DO [Primary Care Provider, Internal Medicine] Print Language: Japanese
--- NOTE | 2025-05-28 12:37 | ECG_ITS ---
Test Reason : Presyncope Blood Pressure : */* mmHG Vent. Rate : 85 BPM Atrial Rate : 85 BPM P-R Int : 132 ms QRS Dur : 80 ms QT Int : 364 ms P-R-T Axes : 68 -19 38 degrees QTcB Int : 433 ms Sinus rhythm with occasional Premature ventricular complexes Cannot rule out Anterior infarct , age undetermined Abnormal ECG No previous ECGs available Referred By: Sherron Charles Electronically Signed By: VALERIE ANDREWS
[2025-05-28 12:56] LABS: Hematocrit 43.9 % (42.0-52.0); Hemoglobin 15.1 g/dl (14.0-18.0); Imm Gran Abs Auto 0.02 X10*3/uL (0.00-0.03); Imm Gran Pct Auto 0.4 % (0.0-0.4); Lymphocytes Absolute Auto 1.8 X10*3/uL (1.2-4.9); MANUAL DIFF FLAG NO; Mean Corpuscular HGB Conc 34.4 g/dl (31.0-36.0); Mean Corpuscular Hemoglobin 31.1 pg (27.0-33.0); Mean Corpuscular Volume 90.3 fL (80.0-98.0); NRBC Abs Auto 0.000 X10*3/uL (0.0-0.012); NRBC Pct Auto 0.0 /100WBC (0.0-0.2); Platelet Count 219 X10*3/uL (160-400); Red Blood Count 4.86 X10*6/uL (4.60-5.80); White Blood Count 5.5 X10*3/uL (4.8-10.8)
[2025-05-28 13:20] LABS: Troponin-I High Sensitivity < 2.7 ng/L (<3.5-35.0)
[2025-05-28 13:35] LABS: Resp Syncy Virus RNA Qual PCR NEGATIVE (Negative); SARS COV2 PCR INHOUSE NEGATIVE (Negative)
[2025-05-28 15:50] VITALS: BP 141/88; PULSE 80; RESP 16; TEMP 36.4; O2SAT 98
[2025-05-28 16:19] VITALS: BP 135/74; BP 141/78; PULSE 77; PULSE 82; RESP 14; TEMP 36.4; O2SAT 99
[2025-05-28 16:20] VITALS: BP 132/83; PULSE 80
[2025-05-28 16:20] LABS: Alanine Aminotransferase 30 U/L (0-40); Albumin Level 4.5 g/dL (3.5-5.0); Alkaline Phosphatase 65 U/L (39-117); Anion Gap 10 (12-20); Aspartate Amino Transferase 23 U/L (5-37); Blood Urea Nitrogen 13 mg/dL (9-16); Calcium 9.6 mg/dL (8.4-10.2); Carbon Dioxide 26 mmol/L (22-29); Chloride 108 mmol/L (96-108); Creatinine Clr Calc Pharmacy 88.6; Estimated Glomerular Filt Rate > 60; Magnesium 2.2 mg/dL (1.6-2.6); Potassium 3.9 mmol/L (3.3-5.1); Sodium 140 mmol/L (135-145); Total Protein 7.7 g/dL (6.5-8.0)
[2025-05-28 16:22] VITALS: BP 142/87; PULSE 78
[2025-05-28 16:39] VITALS: BP 142/87; PULSE 78; RESP 16; TEMP 36.6
--- OUTSIDE RECORDS SUMMARY | 2025-05-28 19:00 | XMS_ITS | Encounter Summary ---
Author Organization [employer] Address [address] [facility] [address] [place] [address] Care Team Providers Care Metal Sprayer Machined Parts Name Role Phone Justine Royal Primary Care Provider [phone] Encounter Details Date Type Department Care Team (Latest Contact Info) Description 05/28/2025 Travel Social History Tobacco Use Types Packs/Day Years Used Date Smoking Tobacco: Never Passive Smoke Exposure: Never Smokeless Tobacco: Never Alcohol Use Standard Drinks/Week Comments Never 0 [...] 06/11/2025 11:00 AM EST Office Visit [facility] [address] [place] [address] Narda Suttonricio [address] [place] [address] 07/29/2025 9:30 AM EST Office Visit [facility] [address] [place] [address] Tarka, Anneliese, OD [address] [place] [address] 08/16/2025 9:30 AM EDT Office Visit [facility] [address] [place] [address] Jamshid Lamas documented as of this encounter Visit Diagnoses Not on filedocumented in this encounter Additional Health Concerns Assessment Noted Time PHQ-9 Depression Total Score: 3 01/19/20 25 12:23 PM EDT documented as of this encounter Care Teams Metal Sprayer Machined Parts Relationship Specialty Start Date End Date Justine Royal DO [address] [place] [id number] PCP - General Family Medicine 01/22/25 documented as of this encounter
--- OUTSIDE RECORDS SUMMARY | 2025-05-28 19:00 | XMS_ITS | Encounter Summary ---
Author Organization [employer] Address [address] [place] [facility] [address] [place] [address] Care Team Providers Care Candle Extrusion Machine Operator Name Role Phone Justine Royal DO Primary Care Provider Encounter Details Date Type Department Care Team (Latest Contact Info) Description 08/13/2019 Abstract [facility] CONVERSION[facility] Dental, Provider, DDS Social History [...] 06/11/2025 11:00 AM EST Office Visit [facility] [address] [place] [address] Herman, Hitesh [address] [place] [address] 07/29/2025 9:30 AM EST Office Visit [facility] [address] [place] [address] Tarka, Anneliese, OD [address] [place] [address] 08/16/2025 9:30 AM EDT Office Visit [facility] [address] [place] [address] Jamshid Lamas documented as of this encounter Visit Diagnoses Not on filedocumented in this encounter Care Teams Candle Extrusion Machine Operator Relationship Specialty Start Date End Date Justine Royal DO [address] [place] [id number] PCP - General Family Medicine 01/22/25 documented as of this encounter
--- OUTSIDE RECORDS SUMMARY | 2025-05-28 19:00 | XMS_ITS | Encounter Summary ---
Author Organization [facility] Address [address] [facility] [address] [place] [address] Care Team Providers Care Educational Interpreter Name Role Phone Justine Royal DO Primary Care Provider [phone] Encounter Details Date Type Department Care Team (Latest Contact Info) Description 01/22/2022 Abstract [facility] Dental, Provider, DDS Social History [...] Description 06/11/2025 11:00 AM EST Office Visit [facility] [address] [place] [address] Herman, Hitesh [address] [place] [address] 07/29/2025 9:30 AM EST Office Visit [facility] [address] [place] [address] Tarka, Anneliese, OD [address] [place] [address] 08/16/2025 9:30 AM EDT Office Visit [facility] [address] [place] [address] Jamshid Lamas documented as of this encounter Visit Diagnoses Not on filedocumented in this encounter Care Teams Educational Interpreter Relationship Specialty Start Date End Date Justine Royal DO [address] [place] [address] PCP - General Family Medicine 01/22/25 documented as of this encounter
--- OUTSIDE RECORDS SUMMARY | 2025-05-28 19:00 | XMS_ITS | Encounter Summary ---
Author Organization [employer] Address [address] [facility] [address] [place] [address] Care Team Providers Care Docketing Specialist Name Role Phone Justine Royal DO Primary Care Provider Encounter Details Date Type Department Care Team (Latest Contact Info) Description 12/04/2018 Abstract [facility] CONVERSIONS Dental, Provider, DDS Social [...] Description 06/11/2025 11:00 AM EST Office Visit [facility] [address] [place] [address] Herman, Hitesh [address] [place] [address] 07/29/2025 9:30 AM EST Office Visit [facility] [address] [place] [address] Tarka, Anneliese, OD [address] [place] [address] 08/16/2025 9:30 AM EDT Office Visit [facility] [address] [place] [address] Jamshid Lamas documented as of this encounter Visit Diagnoses Not on filedocumented in this encounter Care Teams Docketing Specialist Relationship Specialty Start Date End Date Justine Royal DO [address] [place] [id number] PCP - General Family Medicine 01/22/25 documented as of this encounter
--- OUTSIDE RECORDS SUMMARY | 2025-05-28 19:00 | XMS_ITS | Clinical Summary ---
Author Organization [employer] Address [address] [place] [address] Care Team Providers Care Emergency Vehicle Operator Name Role Phone GennyJustine Primary Care Provider Allergies No known active allergies Medications Blood Pressure kit 1 each 2 times daily. 1 kit 12/20/19 25 Active lidocaine (Lidoderm) 5 % patch Apply 1 patch topically Once per day. Remove & discard patch within 12 hours or as directed by MD. 30 patch 2 12/20/19 25 026 Active tiZANidine (Zanaflex) 2 MG tablet Take 1 tablet (2 mg) by mouth every 6 (six) hours if needed for muscle spasms. 30 tablet 2 12/20/19 25 Active acetaminophen (Tylenol) 500 MG tablet Take 2 tablets (1,000 mg) by mouth every 6 (six) hours if needed for moderate pain or fever for up to 25 doses. 50 tablet 12/20/19 25 Active losartan (Cozaar) 25 MG tablet Take 1 tablet (25 mg) by mouth Once per day. 90 tablet 1 01/19/20 25 026 Active atorvastatin (Lipitor) 20 MG tabletIndications: Hyperlipidemia, unspecified hyperlipidemia type Take 1 tablet (20 mg) by mouth Once per day. 90 tablet 3 01/25/20 25 026 Active Additional Information Patient not taking.Reported on 05/10/2025 Active Problems Problem Noted Date Diagnosed Date Essential hypertension 01/22/2025 Lumbar spondylosis 01/09/2025 Spina bifida occulta 01/09/2025 Chronic right-sided low back pain with right-rosi ed sciatica 12/19/2024 Encounters Date Type Department Care Team Description 05/28/2025 9:00 AM EST Office Visit [facility] [address] [place] [phone] Alberto Peterson MD Near syncope (Primary Dx); Essential hypertension 05/28/2025 Orders Only GENERIC EXTERNAL DATA DEPARTMENT Provider, Generic External Data 05/28/2025 Telephone [facility] [address] [place] [address] Ena Smith RN ED Expect 05/28/2025 Travel 05/10/2025 10:00 AM EST Office Visit [facility] ADULT D[facility]AL [address] [place] [address] Herman, Hitesh 04/04/2025 10:00 AM EST Office Visit [facility] ADULT [facility] [address] [place] [address] Herman, Hitesh 02/28/2025 11:00 AM EDT Office Visit [facility] ADULT [facility] [address] [place] [address] Herman, Hitesh from Last 3 Months Family History Medical History Relation Name Comments Colon cancer Father Hypertension Father Anemia Mother Heart disease Mother at age 87 Hypertension Mother Hypertension Sister Spina bifida Sister Relation Name Status Comments Father Mother Sister Social History Tobacco Use Types Packs/Day Years [...] not to disclose 2021 10:30 AM EDT Last Filed Vital Signs Vital Sign Reading Time Taken Comments Blood Pressure 140/93 05/28/2025 8:49 AM EST Pulse 81 05/28/2025 8:49 AM EST Temperature 36.8 C (98.3 F) 05/28/2025 8:49 AM EST Respiratory Rate 18 05/28/2025 8:49 AM EST Oxygen Saturation 99% 05/28/2025 8:49 AM EST Inhaled Oxygen Concentration - - Weight 76.2 kg (168 lb) 05/28/2025 8:49 AM EST Height 162.6 cm (5' 4 ) 01/18/2025 9:21 AM EDT Body Mass Index 28.84 01/18/2025 9:21 AM EDT Plan of Treatment Upcoming Encounters Date Type Department Care Team (Late st Contact Info) Description 06/11/2025 11:00 AM EST Office Visit [facility] ADULT D[facility]AL [address] [place] [address] Hitesh Sutton [address] [place] [address] 07/29/2025 9:30 AM EST Office Visit [facility] [address] [place] [address] Anneliese Tracy, OD [address] [place] [address] 08/16/2025 9:30 AM EDT Office Visit [facility] ADULT DENTAL [address] [place] [address] Jamshid Lamas Health Maintenance Due Date Last Done Comments CT Colonography 1960 Colonoscopy 1960 Colorectal Cancer Screening 1960 FIT DNA/Cologuard 1962 FIT 1960 FOBT 1960 Sigmoidoscopy 1962 Alcohol/Substance Use Screening 1974 DTaP/Tdap/Td Vaccines (1 - Tdap) 1981 Pneumococcal Vaccine: 50+ Years (1 of 1 - PCV) 2012 Zoster Vaccines (1 of 2) 2012 Dental Oral Exam 05/20/2024 11/18/2023, , 08/13/2019, Additional history exists COVID-19 Vaccine ( - season) 2025 10/31/2020, 10/03/2020 Influenza Vaccine (#1) 2025 Dental Prophylaxis 08/16/2025 02/15/2025, 0 11/18/2023, 01/22/2022, Additional history exists SDOH Screening 01/11/2026 01/11/2025 Depression Screening 01/18/2026 01/18/2025, 01/19/20 Disability Screening 01/18/2026 01/18/2025 Dental X-Ray: Bitewings 02/16/2026 02/16/20 25, 11/18/2023, 12/21/2017, Additional history exists Tobacco Screening 05/28/2026 05/28/2025 Dental X-Ray: Full Mouth 11/18/2026 024, 12/21/2017, 05/17/2016 Lipid Panel 01/18/2030 01/18/2025 RSV Patients and Patients Aged 60 years or older (1 - 1-dose 75+ series) 2037 HIV Screening Completed 01/18/2025 Hepatitis C Screening Completed 01/18/2025 HIB Vaccines Aged Out No longer eligi ble based on patient's age to complete this topic HPV Vaccines Aged Out No longer eligi ble based on patient's age to complete this topic Hepatitis A Vaccines Aged Out No long er eligible based on patient's age to complete this topic Hepatitis B Vaccines Aged Out No long er eligible based on patient's age to complete this topic IPV Vaccines Aged Out No longer eligi ble based on patient's age to complete this topic Meningococcal B Vaccine Aged Out No l onger eligible based on patient's age to complete this topic Meningococcal Vaccine Aged Out No jovani juan antonio eligible based on patient's age to complete this topic RSV under 20 months Aged Out No longe r eligible based on patient's age to complete this topic Rotavirus Vaccines Aged Out No longer eligible based on patient's age to complete this topic Procedures Procedure Name Priority Date/Time Associated Diagnosis Comments ECG 12-LEAD Routine 05/28/2025 1:56 PM EST Near syncope XR CHEST 2 VIEWS Routine 05/28/2025 12:5 9 PM EST MAGNESIUM Routine 05/28/2025 12:51 PM EST BASIC METABOLIC PANEL Routine 05/28/2025 12:51 PM EST HEPATIC FUNCTION PANEL Routine 05/28/2025 12:51 PM EST HIGH SENSITIVITY TROPONIN I Routine 05/28/2025 12:51 PM EST CBC WITH AUTO DIFFERENTIAL Routine 05/28/2025 12:51 PM EST SARS COV2/INFLUENZA A/B AND RSV RNA QL NAAT Routine 05/28/2025 12:51 PM EST CASE PRESENTATION, DETAILED AND EXTENSIVE TREATMENT PLANNING Routine 05/10/2025 10:00 AM EST BITE REGISTRATION Routine 05/10/2025 10: 00 AM EST CASE PRESENTATION, DETAILED AND EXTENSIVE TREATMENT PLANNING Routine 04/04/2025 10:00 AM EST DENTURE IMPRESSION Routine 04/04/2025 10 :00 AM EST CASE PRESENTATION, DETAILED AND EXTENSIVE TREATMENT PLANNING Routine 02/28/2025 11:00 AM EDT DENTURE IMPRESSION Routine 02/28/2025 11 :00 AM EDT PROPHYLAXIS - ADULT Routine 02/15/2025 9 :00 AM EDT BITEWINGS - 4 RADIOGRAPHIC IMAGES Routine 02/15/2025 9:00 AM EDT HEPATITIS C AB W/REFL TO HCV RNA, QN, PCR Routine 01/18/2025 10:23 AM EDT Routine history and physical examination of adult Essential hypertension Chronic right-sided low back pain with right-sided sciatica BMI 28.0-28.9,adult Dietary counseling Exercise counseling HIV 1/2 ANTIGEN/ANTIBODY, FOURTH GENERATION W/RFL Routine 01/18/2025 10:23 AM EDT Routine history and physical examination of adult Essential hypertension Chronic right-sided low back pain with right-sided sciatica BMI 28.0-28.9,adult Dietary counseling Exercise counseling LIPID PANEL, STANDARD Routine 01/18/2025 10:23 AM EDT Routine history and physical examination of adult Essential hypertension Chronic right-sided low back pain with right-sided sciatica BMI 28.0-28.9,adult Dietary counseling Exercise counseling INTRAORAL - COMPLETE SERIES OF RADIOGRAPHIC IMAGES Routine 11/18/2023 8:00 AM EDT PERIODIC ORAL EVALUATION - ESTABLISHED PATIENT Routine 11/18/2023 8:00 AM EDT from Last 3 Months or Most Recently Relevant to Health Maintenance Results * XR Chest 2 Views (05/28/2025 12:59 PM EST) Anatomical Region Laterality Modality Chest Radiographic Tabitha ging 05/28/2025 12:5 9 PM EST Narrative 05/28/2025 1:21 PM EST [place] [id number] XRay Report Signed Patient: Vanessa Linares MR#: [id number] : 1960 Acct:[id number] Age/Sex: 64 / M ADM Date: 05/28/25 Loc: HO.ED Attending Dr: Ordering Physician: Sherron Charles Date of Service: 05/28/25 Procedure(s): XR chest 2V Accession Number(s): [id number] cc: Justine Royal DO; Sherron Charles Reason for Exam: Presyncope EXAMINATION: XR CHEST CLINICAL INFORMATION: Presyncope COMPARISON: None available. TECHNIQUE: 2 views of the chest were obtained. FINDINGS: Linear scarring or subsegmental atelectasis at the left lung base. The lungs are otherwise clear. No consolidation or pulmonary edema. No pleural effusion or pneumothorax. Cardiac and mediastinal contours are normal. Mild curvature of the lower thoracic spine to the right and degenerative change. XR/XR chest 2V IMPRESSION: No evidence for acute disease in the chest. Electronically signed by: Racheal Fleming MD 05/28/2025 01:18 PM EST RP Dictated By: Racheal Fleming MD Signed By: <Electronically signed by Racheal Fleming MD in OV> 05/28/25 1318 DD/ 1259 TD/TT: 05/28/25 1302 [place]: SETH Procedure Note Donotuseinterpreter, Image - 05/28/2025 [place] [address] XRay Report Signed Patient: Vanessa Linares EMR#: [id number] : 1960Acct:[id number] Age/Sex: 64 / MADM Date: 05/28/25 Loc: HO.ED Attending Dr: Ordering Physician: Sherron Charles Date of Service: 05/28/25 Procedure(s): XR chest 2V Accession Number(s): [id number] cc: Justine Royal DO; Sherron Charles Reason for Exam: Presyncope EXAMINATION: XR CHEST CLINICAL INFORMATION: Presyncope COMPARISON: None available. TECHNIQUE: 2 views of the chest were obtained. FINDINGS: Linear scarring or subsegmental atelectasis at the left lung base. The lungs are otherwise clear. No consolidation or pulmonary edema. No pleural effusion or pneumothorax. Cardiac and mediastinal contours are normal. Mild curvature of the lower thoracic spine to the right and degenerative change. XR/XR chest 2V IMPRESSION: No evidence for acute disease in the chest. Electronically signed by: Racheal Fleming MD 05/28/2025 01:18 PM EST RP Dictated By: Racheal Fleming MD Signed By: <Electronically signed by Racheal Fleming MD in OV> 05/28/25 1318 DD/ 1259 TD/TT: 05/28/25 1302 [place]: SETH [facility] External Provider IMG XR PROCEDURES Final Result * High Sensitivity Troponin I (05/28/2025 12:51 PM EST) Pathologist [facility] TROPONIN I HIGH SENSITIVITY <2.7 <3.5 - 35.0 ng/L [facility] Comment:The Hayes high sens itivity Troponin-I results should beused in conjunction with other diagnostic information suchas ECG, clinical observations and information, and patientsymptoms to aid in the diagnosis of DE. 05/28/2025 12:5 1 PM EST 05/28/2025 12:54 PM EST Generic External Data Provider LAB BLOOD ORDERAB LES Final Result Performing Organization Address City/State/[facility] Co de Phone Number [facility] [address] [place] [phone] * SARS-CoV-2 RNA, Influenza A/B, and RSV RNA, Ql NAAT (05/28/2025 12:51 PM EST) Pathologist [facility] Influenza A PCR NEGATIVE Negative [facility] Influenza B PCR NEGATIVE Negative [facility] Resp Syncy Virus RNA Qual PCR NEGATIVE Negative [facility] SARS COV2 PCR NEGATIVE Negative [facility] Comment:All test results mus t be correlated with clinical findings.Negative results do not preclude SARS-CoV2, influenza Avirus, influenza B virus and/or RSV infectionand should not be used as the sole basis for treatment orother patient management decisions. Negative results must becombined with clinical observations, patient history, andepidemiological information.This test has not been evaluated for monitoring treatment ofinfection.This test has been authorized by the FDA under an EmergencyUse Authorization (EUA) for use by authorized laboratories.Testing performed on the [employer] GeneXpert utilizingreal-time RT-PCR.All SARS CoV2 and positive influenza A/B results arereported to [facility]. 05/28/2025 12:5 1 PM EST 05/28/2025 12:54 PM EST us Generic External Data Provider LAB MICROBIOLOGY - GENERAL ORDERABLES Final Result [facility] [address] [place] [address] [phone] * CBC auto differential (05/28/2025 12:51 PM EST) White Blood Count 5.5 4.8 - 10.8 X10*3/uL [facility] Red Blood Count 4.86 4.60 - 5.80 X10*6/uL [facility] Hemoglobin 15.1 14.0 - 18.0 g/dl [facility] Hematocrit 43.9 42.0 - 52.0 % [facility] Mean Corpuscular Volume 90.3 80.0 - 98.0 fL [facility] Mean Corpuscular Hemoglobin 31.1 27.0 - 33.0 pg [facility] Mean Corpuscular HGB Conc 34.4 31.0 - 36.0 g/dl [facility] Red Cell Distribution Width 13.2 11.0 - 16.0 % [facility] Platelet Count 219 160 - 400 X10*3/uL [facility] Mean Platelet Volume 10.2 9.4 - 12.4 fL [facility] Neutrophils Percent Auto 57.2 45 - 73 % [facility] Imm Gran Pct Auto 0.4 0.0 - 0.4 % [facility] Lymphocytes Percent Auto 33.5 20 - 40 % [facility] Monocytes Percent Auto 7.7 2 - 11 % [facility] Eosinophils Percent Auto 0.7 0 - 4 % [facility] Basophils Percent Auto 0.5 0 - 2 % [facility] NRBC Pct Auto 0.0 0.0 - 0.2 /100WBC [facility] Neutrophils Absolute Auto 3.1 2.0 - 8.3 x10*3/uL [facility] Imm Gran Abs Auto 0.02 0.00 - 0.03 X10*3/uL [facility] Lymphocytes Absolute Auto 1.8 1.2 - 4.9 X10*3/uL [facility] Monocytes Absolute Auto 0.4 0.1 - 1.2 X10*3/uL [facility] Eosinophils Absolute Auto 0.0 0.0 - 0.4 X10*3/uL [facility] Basophils Absolute Auto 0.0 0.0 - 0.2 X10*3/uL [facility] NRBC Abs Auto 0.000 0.0 - 0.012 X10*3/uL [facility] 05/28/2025 12:5 1 PM EST 05/28/2025 12:54 PM EST Generic External Data Provider LAB BLOOD ORDERAB LES Final Result Performing Organization Address [facility]/ZIP Co de Phone Number [facility] [address] [place] [phone] * Magnesium (05/28/2025 12:51 PM EST) Pathologist [facility] Magnesium 2.2 1.6 - 2.6 mg/dL [facility] 05/28/2025 12:5 1 PM EST 05/28/2025 4:09 PM EST Generic External Data Provider LAB BLOOD ORDERAB LES Final Result Performing Organization Address [facility] Co de Phone Number [facility] [address] [place] [phone] * Hepatic Function Panel (05/28/2025 12:51 PM EST) Bilirubin, Total 0.5 0.0 - 1.0 mg/dL [facility] Bilirubin, Direct 0.2 0.0 - 0.5 mg/dL [facility] Aspartate Amino Transferase 23 5 - 37 U/L [facility] Alanine Aminotransferase 30 0 - 40 U/L [facility] Total Protein 7.7 6.5 - 8.0 g/dL [facility] Albumin Level 4.5 3.5 - 5.0 g/dL [facility] Alkaline Phosphatase 65 39 - 117 U/L [facility] 05/28/2025 12:5 1 PM EST 05/28/2025 4:09 PM EST us Generic External Data Provider LAB BLOOD ORDERAB LES Final Result [facility] [address] [place] [phone] [phone] * (ABNORMAL) Basic Metabolic Panel (05/28/2025 12:51 PM EST) Sodium 140 135 - 145 mmol/L [facility] Potassium 3.9 3.3 - 5.1 mmol/L [facility] Chloride 108 96 - 108 mmol/L [facility] Carbon Dioxide 26 22 - 29 mmol/L [facility] Anion Gap 10(L) 12 - 20 [facility] Urea Nitrogen (BUN) 13 9 - 16 mg/dL [facility] Creatinine, Serum 0.80 0.5 - 1.4 mg/dL [facility] Creatinine Clr Calc Pharmacy 88.6 [facility] Comment:eGFR (calculated fro m the MDRD study equation) and eCrCl(calculated from the Cockcroft-Gault equation) are based ondifferent parameters and may not yield comparable results.If eCrCl result is absurd, please check patient'sheight/weight. Estimated Glomerular Filt Rate >60 [facility] Comment:Chronic Kidney Disea se: Estimated GFR < 60 mL/min/1.69x1Fwvkym Kidney Disease: Estimated GFR < 15 mL/min/1.73m2 Glucose 102 60 - 115 mg/dL [facility] Calcium 9.6 8.4 - 10.2 mg/dL [facility] 05/28/2025 12:5 1 PM EST 05/28/2025 4:09 PM EST us Generic External Data Provider LAB BLOOD ORDERAB LES Final Result Performing Organization Address [facility]/ZIP Co de Phone Number [facility] [address] [place] [phone] * Hepatitis C Antibody with Reflex to HCV, RNA, Quantitative, Real-Time PCR (01/18/2025 10:23 AM EDT) Hepatitis C Antibody Nonreactive Nonreactive [facility] Comment:Antibodies to HCV no t detected; does not exclude early acuteHCV infection. Blood Venous blood specimen / Unknown 01/18/2025 10:23 AM EDT 01/18/2025 11:54 AM EDT Justine Royal DO LAB BLOOD ORDERABLES Final R esult Performing Organization Address [facility] Co de Phone Number [facility] [address] [place] [phone] * HIV-1/2 Antigen and Antibodies, Fourth Generation, with Reflexes (01/18/2025 10:23 AM EDT) HIV AB/AG Nonreactive Nonreactive [facility] Comment:HIV-1 p24 Ag and/or HIV-1/HIV-2 Ab not detected.A test result that is nonreactive does not exclude thepossibility of exposure to or infection with HIV-1 and/orHIV-2. Nonreactive results in this assay for individualswith prior exposure to HIV-1 and/or HIV-2 may be due toantigen and antibody levels that are below the limit ofdetection of this assay.The [employer] HIV Ag/Ab Combo assay result andsupplemental assay results should be interpreted inconjunction with the patient's clinical presentation,history and other laboratory results. If the results areinconsistent with clinical evidence, additional testing issuggested to confirm the result. Blood Venous blood specimen / Unknown 01/18/2025 10:23 AM EDT 01/18/2025 11:54 AM EDT us Justine Genny DO LAB BLOOD ORDERABLES Final R esult [facility] [address] [place] [phone] * (ABNORMAL) Lipid Panel, Standard (01/18/2025 10:23 AM EDT) Triglycerides 106 <150 mg/dL [facility] Comment:Desirable Triglyceri de: less than 150 mg/dLBorderline High Triglyceride 150-199 mg/dLHigh Triglyceride: 200-499 mg/dLVery High Triglyceride: greater than or equal to 5OO mg/dL Cholesterol 282(H) <200 mg/dL [facility] Comment:Desirable Cholestero l: less than 200 mg/dLBorderline High Cholesterol: 200-239 mg/dLHigh Cholesterol: greater than 239 mg/dL LDL Cholesterol Calculated 217(H) <100 mg/dL [facility] Comment:Desirable LDL: less than 100 mg/dLNear Optimal/Above Optimal LDL: 110- 129 mg/dLBorderline High LDL: 130-159 mg/dLHigh LDL: 160-189 mg/dLVery High LDL: greater than or equal to 190 mg/dL HDL Cholesterol 44 >40 mg/dL [facility] Comment:Desirable HDL: great er than 40 mg/dL Note: This HDL assay may give artificially low results in patients with liver disease. Blood Venous blood specimen / Unknown 01/18/2025 10:23 AM EDT 01/18/2025 11:54 AM EDT us Justine Royal DO LAB BLOOD ORDERABLES Final R esult [facility] [address] [place] [phone] from Last 3 Months or Most Recently Relevant to Health Maintenance Insurance [place] [address] C3 [facility] MEDICAID STAND ADULT Care Teams Emergency Vehicle Operator Relationship Specialty Start Date End Date Justine Royal DO [address] [place] [phone] PCP - General Family Medicine 01/22/25
--- OUTSIDE RECORDS SUMMARY | 2025-05-28 19:00 | XMS_ITS | Encounter Summary ---
Author Organization [employer] Address [address] [facility] [address] [place] [address] Care Team Providers Care Shipping Inspector Name Role Phone RonnaJustine quintana Primary Care Provider [phone] Encounter Details Date Type Department Care Team (Late st Contact Info) Description 05/28/2025 Orders Only GENERIC EXTERNAL DATA DEPARTMENT Provider, Generic External Data Social History Tobacco Use Types Packs/Day Years [...] Description 06/11/2025 11:00 AM EST Office Visit [facility] [address] [place] [address] Narda Suttonricio [address] [place] [address] 07/29/2025 9:30 AM EST Office Visit [facility] [address] [place], [place] [phone] TarAnneliese dixon, OD [address] [place], [place] [phone] 08/16/2025 9:30 AM EDT Office Visit [facility] [address] [place], [place] [phone] Jamshid Lamas documented as of this encounter Procedures Procedure Name Priority Date/Time Associated Diagnosis Comments XR CHEST 2 VIEWS Routine 05/28/2025 12:5 9 PM EST HIGH SENSITIVITY TROPONIN I Routine 05/28/2025 12:51 PM EST SARS COV2/INFLUENZA A/B AND RSV RNA QL NAAT Routine 05/28/2025 12:51 PM EST CBC WITH AUTO DIFFERENTIAL Routine 05/28/2025 12:51 PM EST MAGNESIUM Routine 05/28/2025 12:51 PM EST HEPATIC FUNCTION PANEL Routine 05/28/2025 12:51 PM EST BASIC METABOLIC PANEL Routine 05/28/2025 12:51 PM EST documented in this encounter Results * XR Chest 2 Views (05/28/2025 12:59 PM EST) Anatomical Region Laterality Modality Chest Radiographic Tabitha ging 05/28/2025 12:5 9 PM EST Narrative 05/28/2025 1:21 PM EST [address] [address] XRay Report Signed Patient: Vanessa Linares MR#: [id number] : 1960 Acct:[id number] Age/Sex: 64 / M ADM Date: 05/28/25 Loc: HO.ED Attending Dr: Ordering Physician: Sherron Charles Date of Service: 05/28/25 Procedure(s): XR chest 2V Accession Number(s): [id number] cc: Justine Royal DO; Sherron Charles Reason [...] 05/28/25 1318 DD/ 1259 TD/TT: 05/28/25 1302 Icebox Man: SETH Procedure Note Donotuseinterpreter, Image - 05/28/[address] [address] XRay Report Signed Patient: Vanessa Linares EMR#: [id number] : 1960Acct:[id number] Age/Sex: 64 / MADM Date: 05/28/25 Loc: HO.ED Attending Dr: Ordering Physician: Sherron Charles Date of Service: 05/28/25 Procedure(s): XR chest 2V Accession Number(s): [id number] cc: Justine Royal DO; Sherron Charles Reason [...] 05/28/25 1318 DD/ 1259 TD/TT: 05/28/25 1302 Icebox Man: SETH [facility] External Provider IMG XR PROCEDURES Final Result * Magnesium (05/28/2025 12:51 PM EST) Magnesium 2.2 1.6 - 2.6 mg/dL [facility] 05/28/2025 12:5 1 PM EST 05/28/2025 4:09 PM EST Generic External Data Provider LAB BLOOD ORDERAB LES Final Result [facility] [address] [place] [phone] * (ABNORMAL) Basic Metabolic Panel (05/28/2025 12:51 PM EST) Sodium 140 135 - 145 mmol/L [facility] Potassium 3.9 3.3 - 5.1 mmol/L [facility] Chloride 108 96 - 108 mmol/L [facility] Carbon Dioxide 26 22 - 29 mmol/L [facility] Anion Gap 10(L) 12 - 20 [facility] Urea Nitrogen (BUN) 13 9 - 16 mg/dL [facility] Creatinine, Serum 0.80 0.5 - 1.4 mg/dL [facility] Creatinine Clr Calc Pharmacy 88.6 [facility] Comment:eGFR (calculated fro m the MDRD study equation) and eCrCl(calculated from the Cockcroft-Gault equation) are based ondifferent parameters and may not yield comparable results.If eCrCl result is absurd, please check patient'sheight/weight. Estimated Glomerular Filt Rate >60 [facility] Comment:Chronic Kidney Disea se: Estimated GFR < 60 mL/min/[id number] Kidney Disease: Estimated GFR < 15 mL/min/1.73m2 Glucose 102 60 - 115 mg/dL [facility] Calcium 9.6 8.4 - 10.2 mg/dL [facility] 05/28/2025 12:5 1 PM EST 05/28/2025 4:09 PM EST us Generic External Data Provider LAB BLOOD ORDERAB LES Final Result [facility] [address] [place] [phone] * Hepatic Function Panel (05/28/2025 12:51 PM EST) Bilirubin, Total 0.5 0.0 - 1.0 mg/dL [facility] Bilirubin, Direct 0.2 0.0 - 0.5 mg/dL [facility] Aspartate Amino Transferase 23 5 - 37 U/L [facility] Alanine Aminotransferase 30 0 - 40 U/L [facility] Total Protein 7.7 6.5 - 8.0 g/dL [facility] Albumin Level 4.5 3.5 - 5.0 g/dL [facility] Alkaline Phosphatase 65 39 - 117 U/L [facility] 05/28/2025 12:5 1 PM EST 05/28/2025 4:09 PM EST Generic External Data Provider LAB BLOOD ORDERAB LES Final Result Performing Organization Address [facility] Co de Phone Number [facility] [address] [place] [phone] * SARS-CoV-2 RNA, Influenza A/B, and RSV RNA, Ql NAAT (05/28/2025 12:51 PM EST) Pathologist [facility] Influenza A PCR NEGATIVE Negative [facility] Influenza B PCR NEGATIVE Negative [facility] Resp Syncy Virus RNA Qual PCR NEGATIVE Negative [facility] SARS COV2 PCR NEGATIVE Negative [facility] Comment:All test results mus t [...] use by authorized laboratories.Testing performed on the [employer] GeneXpert utilizingreal-time RT-PCR.All SARS CoV2 and positive influenza A/B results arereported to [facility]. 05/28/2025 12:5 1 PM EST 05/28/2025 12:54 PM EST us Generic External Data Provider LAB MICROBIOLOGY - GENERAL ORDERABLES Final Result Performing Organization Address [facility] Co de Phone Number [facility] [address] [place] [phone] * High Sensitivity Troponin I (05/28/2025 12:51 PM EST) Pathologist [facility] TROPONIN I HIGH SENSITIVITY <2.7 <3.5 - 35.0 ng/L [facility] Comment:The Hayes high sens itivity Troponin-I results should beused in conjunction with other diagnostic information suchas ECG, clinical observations and information, and patientsymptoms to aid in the diagnosis of CO. 05/28/2025 12:5 1 PM EST 05/28/2025 12:54 PM EST us Generic External Data Provider LAB BLOOD ORDERAB LES Final Result [facility] [address] [place] [phone] * CBC auto differential (05/28/2025 12:51 PM EST) White Blood Count 5.5 4.8 - 10.8 X10*3/uL [facility] Red Blood Count 4.86 4.60 - 5.80 X10*6/uL [facility] Hemoglobin 15.1 14.0 - 18.0 g/dl [facility] Hematocrit 43.9 42.0 - 52.0 % [facility] Mean Corpuscular Volume 90.3 80.0 - 98.0 fL [facility] Mean Corpuscular Hemoglobin 31.1 27.0 - 33.0 pg [facility] Mean Corpuscular HGB Conc 34.4 31.0 - 36.0 g/dl [facility] Red Cell Distribution Width 13.2 11.0 - 16.0 % [facility] Platelet Count 219 160 - 400 X10*3/uL [facility] Mean Platelet Volume 10.2 9.4 - 12.4 fL [facility] Neutrophils Percent Auto 57.2 45 - 73 % [facility] Imm Gran Pct Auto 0.4 0.0 - 0.4 % [facility] Lymphocytes Percent Auto 33.5 20 - 40 % [facility] Monocytes Percent Auto 7.7 2 - 11 % [facility] Eosinophils Percent Auto 0.7 0 - 4 % [facility] Basophils Percent Auto 0.5 0 - 2 % [facility] NRBC Pct Auto 0.0 0.0 - 0.2 /100WBC [facility] Neutrophils Absolute Auto 3.1 2.0 - 8.3 x10*3/uL [facility] Imm Gran Abs Auto 0.02 0.00 - 0.03 X10*3/uL [facility] Lymphocytes Absolute Auto 1.8 1.2 - 4.9 X10*3/uL [facility] Monocytes Absolute Auto 0.4 0.1 - 1.2 X10*3/uL [facility] Eosinophils Absolute Auto 0.0 0.0 - 0.4 X10*3/uL [facility] Basophils Absolute Auto 0.0 0.0 - 0.2 X10*3/uL [facility] NRBC Abs Auto 0.000 0.0 - 0.012 X10*3/uL [facility] 05/28/2025 12:5 1 PM EST 05/28/2025 12:54 PM EST us Generic External Data Provider LAB BLOOD ORDERAB LES Final Result Performing Organization Address City/State/[facility] Co de Phone Number [facility] [address] [place] [phone] documented in this encounter Visit Diagnoses Not on filedocumented in this encounter Additional Health Concerns Assessment Noted Time PHQ-9 Depression Total Score: 3 01/19/20 25 12:23 PM EDT documented as of this encounter Care Teams Shipping Inspector Relationship Specialty Start Date End Date Justine Royal DO [address] [place] [phone] PCP - General Family Medicine 01/22/25 documented as of this encounter
--- OUTSIDE RECORDS SUMMARY | 2025-05-28 19:00 | XMS_ITS | Encounter Summary ---
Author Organization [employer] Address [address] [facility] [address] [place] [address] Care Team Providers Care Locket Maker Name Role Phone RonnaJustine quintana Primary Care Provider [phone] Reason for Visit * Reason Onset Date Comments ED Expect 05/28/2025 Encounter Details Date Type Department Care Team (Late st Contact Info) Description 05/28/2025 Telephone [facility] [address] [place], [place] [phone] Ena Smith, RN [address] [place] [address] ED Expect Social History Tobacco Use Types Packs/Day Years [...] AM EDT documented as of this encounter Miscellaneous Notes * Telephone Encounter - Ena Smith RN - 05/28/2025 10:04 AM EST Telephone call placed to [facility] ED. Gave ED expect to FAVIAN Carl. Per Peterson: pt withnear syncopal episode 3 days ago while shoveling snow. Episode lasted 10 minutes. Today EKG showed one PVC, otherwise normal. Pt not symptomatic currently but provider advised pt go to [facility] ED by private vehicle to be evaluated. Pt has copy of EKG and OV note with him. Siddhartha repeated back. documented in this encounter Plan of Treatment Upcoming Encounters Date Type Department Care Team (Late st Contact Info) Description 06/11/2025 11:00 AM EST Office Visit [facility] [address] [place] [address] Hitesh Sutton [address] [place] [address] 07/29/2025 9:30 AM EST Office Visit [facility] [address] [place] [address] Anneliese Tracy, OD [address] [place] [address] 08/16/2025 9:30 AM EDT Office Visit [facility] [address] [place] [address] Jamshid Lamas documented as of this encounter Visit Diagnoses Not on filedocumented in this encounter Additional Health Concerns Assessment Noted Time PHQ-9 Depression Total Score: 3 01/19/20 25 12:23 PM EDT documented as of this encounter Care Teams Locket Maker Relationship Specialty Start Date End Date Justine Royal DO [address] [place] [address] PCP - General Family Medicine 01/22/25 documented as of this encounter
== END 2025-05-28 16:43 | disposition home or self-care (01) ==
PROVIDERS: Physician Assistant; Emergency Provider Emergency Medicine; PCP Family Medicine
DX: R55 Syncope and collapse (principal); R68.83 Chills (without fever); I10 Essential (primary) hypertension; Z03.818 Encounter for observation for suspected exposure to other biological agents ruled out; Z79.899 Other long term (current) drug therapy
CPT/HCPCS: 36415; 71046; 80048; 80076; 83735; 84484; 85025; 87637; 93005; 99284

== ENCOUNTER → 2025-05-28 12:37 | Outpatient (BNV) | payer MEDICAID, SELFPAY | PROVIDERS: Emergency Provider Emergency Medicine; PCP Family Medicine; Visit Provider Internal Medicine | DX: I49.3 Ventricular premature depolarization (principal) | CPT/HCPCS: 93010 ==

== ENCOUNTER → 2025-05-28 12:38 | Outpatient (BNV) | payer MEDICAID, SELFPAY | PROVIDERS: PCP Family Medicine; Visit Provider Radiology Diagnostic Radiology | DX: R55 Syncope and collapse (principal) | CPT/HCPCS: 71046 ==